=== PATIENT | male | born 1995 | race Two or more races ===

== ENCOUNTER 2020-09-14 14:13 | Emergency (ER) | payer BC ==
[~2020-09-14] VITALS: Ht 172.7 cm; Wt 71.0 kg
[2020-09-14 14:16] VITALS: BP 142/72
[2020-09-14 17:37] LABS: CLARITY URINE CLEAR (CLEAR); COLOR URINE YELLOW (YELLOW); KETONES URINE NEGATIVE (NEGATIVE); LEUKOCYTE ESTERASE URINE 1+ (NEGATIVE); NITRITE URINE NEGATIVE (NEGATIVE); OCCULT BLOOD URINE NEGATIVE (NEGATIVE); PH URINE 6.5 (4.5-8.0); PROTEIN URINE NEGATIVE (NEGATIVE); SPECIFIC GRAVITY URINE 1.026 (1.005-1.030)
[2020-09-14] MEDS ORDERED: DOXY100T2 MT (17:58)
[2020-09-14] MEDS ORDERED: LIDOCAINE HCL 1% 20ML VIAL (Pyxis) INJ INFIL ONE (18:00)
[2020-09-14] MEDS ORDERED: CEFTRIAXONE SODIUM 500 MG/VIAL IM ONE (18:00)
[2020-09-14] MEDS ORDERED: DOXYCYCLINE HYCLATE 100MG CAPSULE PO ONE (18:00)
[2020-09-17 04:12] LABS: NEISSERIA GONORRHOEAE NAA Negative (Negative)
== END 2020-09-14 19:11 | disposition home or self-care (01) ==
LOC: ER 15:10
DX: R36.9 Urethral discharge, unspecified (principal); Z98.890 Other specified postprocedural states
CPT/HCPCS: 81003; 87491; 87591; 96372; 99283; J0696; J3490